=== PATIENT | female | born 1985 | race Asian ===

== ENCOUNTER → 2016-11-01 | Outpatient (CLI) | payer OTHER | END | disposition home or self-care (01) | LOC: MI 08:33 | PROC: B03 Imaging, Central Nervous System, Magnetic Resonance Imaging (MRI) (ICD-10-PCS; principal; 2016-11-01) | DX: D35.2 Benign neoplasm of pituitary gland (principal); N64.3 Galactorrhea not associated with childbirth ==